=== PATIENT | female | born 1960 | race Caucasian/White ===

== ENCOUNTER 2019-02-06 09:45 | Emergency (ER) | payer OTHER ==
[2019-02-06 10:05] VITALS: BP 136/80; PULSE 81; TEMP 97.9; BMI 31.7
[2019-02-06] MEDS ORDERED: KETOROLAC TROMETHAMINE 30 MG/1 ML VIAL IM ONE (10:37)
[2019-02-06] MEDS ORDERED: LIDOCAINE 5% TOPICAL PATCH TP ONE (10:37)
[2019-02-06] MEDS ORDERED: KETOROLAC TROMETHAMINE 30 MG/1 ML VIAL ONE (10:39)
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
[2019-02-06] MEDS ORDERED: LIDOCAINE 5% TOPICAL PATCH ONE (10:40)
[2019-02-06] MEDS ORDERED: LIDOCAINE PATCH REMOVAL MC SCH (22:00)
== END 2019-02-06 12:10 | disposition home or self-care (01) ==
LOC: JERFT 09:45
PROC: 3E0233Z Introduction of Anti-inflammatory into Muscle, Percutaneous Approach (ICD-10-PCS; principal; 2019-02-06)
DX: S39.012A Strain of muscle, fascia and tendon of lower back, initial encounter (principal); V43.52XA Car driver injured in collision with other type car in traffic accident, initial encounter; Y93.89 Activity, other specified; Y92.410 Unspecified street and highway as the place of occurrence of the external cause; E11.9 Type 2 diabetes mellitus without complications; I10 Essential (primary) hypertension; G89.29 Other chronic pain
CPT/HCPCS: 72100-TC-FY; 73030-TC-RT-FY; 99281-25

== ENCOUNTER 2019-09-23 09:07 | Day surgery (SDC) | payer OTHER ==
[2019-09-22 10:03] VITALS: BMI 28.9
--- NOTE | 2019-09-23 09:37 | EKG ---
Test Reason : Blood Pressure : / mmHG Vent. Rate : 059 BPM Atrial Rate : 059 BPM P-R Int : 140 ms QRS Dur : 086 ms QT Int : 420 ms P-R-T Axes : - degrees QTc Int : 415 ms SINUS BRADYCARDIA OTHERWISE NORMAL ECG WHEN COMPARED WITH ECG OF 06-FEB-2017 14:25, NO SIGNIFICANT CHANGE WAS FOUND Confirmed by MD CHOU PENG ([id number]) on 09/23/2019 9:36:50 AM Referred By: Eliot Ac Confirmed By:TASHI CHOU MD
--- NOTE | 2019-09-23 10:58 | HP ---
Satellite [facility] - Chief Complaint Chief Complaint: left shoulder pain - Past Medical History Allergies/Adverse Reactions: Allergies Allergy/AdvReac Type Severity Reaction Status Date / Time No Known Allergies Allergy Verified 09/23/19 10:51 - Current Medications Current Medications: Home Medications Medication Instructions Recorded Albuterol Sulfate Inhaler - 2 inh IH Q6H PRN 10/26/12 [Ventolin HFA Inhaler -] Amlodipine Besylate [Norvasc -] 5 mg PO DAILY 10/26/12 FENTANYL 75mcg PATCH [DURAGESIC 1 each TD Q72H 02/06/17 75mcg PATCH -] Meclizine HCl [Antivert -] 12.5 mg PO TID 02/06/17 Omeprazole 20 mg PO DAILY 02/06/17 Oxycodone HCl/Acetaminophen 1 each PO TID 02/06/17 [Percocet 10-325 mg Tablet] Aspirin [ASA -] 81 mg PO DAILY tab.chew 02/07/17 Satellite Physical Exam - Physical Examination Vital Signs: Vital Signs Period Temp Pulse Resp BP Sys/Jacob Pulse Ox Last 24 Hr 97.8 F 64 20 127/75 100 General Appearance: Well Nourished, Well Developed, Alert & Oriented x3 ENT: Clear Lung: Normal air movement Extremities: Other (left shoulder- + ttp, decr rom, + neer, + levi, + empty can, nvi) Neurological: Intact, Alert, Oriented Satellite Impression/Plan - Impression/Plan Impression: left shoulder rct Operative Procedure: left shoulder arthroscopy with RCR, SAD Date to be Performed: 09/23/19
[2019-09-23] MEDS ORDERED: ROPIVACAINE HCL 0.5% 30ML VIAL ONE (11:13)
[2019-09-23] MEDS ORDERED: DEXAMETHASONE SOD PHOSPHATE/PF 10 MG/ML SDV ONE (11:13)
[2019-09-23] MEDS ORDERED: MIDAZOLAM HCL 2 MG/2 ML SINGLE DOSE VIAL ONE ×3 (11:15→11:52)
[2019-09-23] MEDS ORDERED: ceFAZolin 2 GRAM PREMIX BAG IVPB ONE (12:00)
[2019-09-23] MEDS ORDERED: ceFAZolin SODIUM 1 GM VIAL ONE (12:38)
[2019-09-23] MEDS ORDERED: DEXAMETHASONE SOD PHOSPHATE 4 MG/1 ML VIAL ONE (12:38)
[2019-09-23] MEDS ORDERED: LIDOCAINE HCL/PF 2% SDV 5ML VIAL ONE (12:38)
--- NOTE | 2019-09-23 12:55 | OP ---
Operative Note - Note: Operative Date: 09/23/19 ([facility]) Pre-Operative Diagnosis: left shoulder rct Operation: left shoulder arthroscopy with RCR, SAD Post-Operative Diagnosis: Same as Pre-op Surgeon: Eliot Ac Respiratory Medicine Physician: Les Robbins Anesthesiologist/PRIVATE PILOT: Brianna Chris Anesthesia: Local, MAC Specimens Removed: shavings Estimated Blood Loss (mls): 5
[2019-09-23] MEDS ORDERED: ONDANSETRON 4 MG/2 ML VIAL IVPUSH PRN (13:23)
[2019-09-23] MEDS ORDERED: oxyCODONE HCL 5 MG TABLET PO PRN (13:23)
[2019-09-23] MEDS ORDERED: LACTATED RINGERS SOLUTION 1,000 ML IV SCH (13:30)
[2019-09-23 14:58] VITALS: TEMP 97.5
[2019-09-23 16:14] VITALS: BP 118/74; PULSE 73
--- NOTE | 2019-09-24 10:48 | OP ---
DATE OF OPERATION: 09/23/2019 PREOPERATIVE DIAGNOSIS: Left rotator cuff tear. POSTOPERATIVE DIAGNOSIS: Left rotator cuff tear plus glenohumeral joint arthritis. PROCEDURE: Left shoulder arthroscopy with subacromial debridement and acromioplasty and bursectomy, left arthroscopic rotator cuff repair, and debridement/chondroplasty of glenohumeral joint. SURGICAL ATTENDING: Eliot Ac MD MANAGER FOOD SAFETY: NALLELY Delgado ANESTHESIA: Regional and general. CLOSURE: Arthrex SpeedBridge for rotator cuff and 3-0 nylon for skin. ESTIMATED BLOOD LOSS: Negligible. COMPLICATIONS: Negative. CONDITION: To recovery room in stable condition. DESCRIPTION OF OPERATIVE PROCEDURE: Patient taken to the operating room on September 23, 2019. Regional anesthesia was administered by the anesthesiologist. IV Kefzol was administered prophylactically prior to the case. Patient was placed in the beach chair position with all prominences well padded. The left shoulder was prepped and draped in the usual sterile fashion. First, a diagnostic arthroscopy of the glenohumeral joint was performed. Posterior portal was made 2 fingerbreadths below the acromion with a 15-blade followed by blunt trocar. Evaluation of the glenohumeral joint revealed the following: Intact glenoid cartilage in the superior 2/3. The inferior 1/3 was significantly worn. Visualizing the humeral head, there were significant mid and posterior grade 3-4 changes. There were no loose bodies in the axillary pouch. Any loose articular cartilage was removed using the shaver. The biceps and biceps anchor were found to be intact. The subscapularis was found to be intact. The supraspinatus was found to be torn and frayed and displaced slightly off the greater tuberosity. The fluid was drained from the glenohumeral joint, the trocars were removed. The posterior trocar was redirected in subacromial space. Accessory lateral and anterior portals were then made with 15-blade and blunt trocar. A bursectomy was performed in the subacromial space using the ArthroCare device. Fibrous tissue encasing the humeral head and filling the subacromial space was debrided using the shaver and the ArthroCare. A large subacromial spur was encountered and was debrided along with completing of an acromioplasty of the undersurface of the acromion, gaining sufficient height for the rotator cuff. Looking inferiorly at the rotator cuff, there was a clear tear of the supraspinatus, crescent morphology, with slight displacement. The bed on the greater tuberosity was debrided and burred with the shaver and bur, respectively. The leading edge of the rotator cuff was cleaned with the shaver, removing primitive healing tissue and exposing the healthy rotator cuff. Two Arthrex anchors preloaded with SutureTape from the SpeedBridge were malleted into the articular margin, one being anterior and one being posterior. Their limbs were delivered one at a time out the lateral portal and were passed in a fanned-out fashion using the ebindle suture passer and then were docked in the anterior portal. One anterior limb and one posterior limb suture was then fed through the eyelet hole of lateral row anchor and was then malleted and screwed into place posteriorly, and then one limb anterior and one posterior was done the same through a more anterolateral row anchor. The sutures were cut flush with the bone. Post-fixation visualization revealed excellent repair of the rotator cuff to the bed of the greater tuberosity. Range of motion revealed excellent clearance in the subacromial space, with good stability of the repair. The fluid was drained from the shoulder, the trocars were removed. The portals were closed using 3-0 nylon. Sterile Aquacel dressings were applied, followed by a shoulder immobilizer. Patient awakened from anesthesia and transferred to recovery in stable condition. No complications. Estimated blood loss negligible. Yury [id number]
--- NOTE | 2019-09-25 18:08 | PATH ---
Surgical Pathology Report Patient Name: ISABELA BROOKS [facility]. Rec. #: [id number] /Age/Gender: 1960 (Age: 59) / F Account: [id number] Location: [facility] Taken: 09/23/2019 Received: 09/23/2019 Reported: 09/25/2019 Physicians: Eliot Ac M.D. Specimen(s) Received LEFT SHOULDER SHAVINGS Clinical History left shoulder tear Final Diagnosis LEFT SHOULDER SHAVINGS: SYNOVIAL TISSUE WITH FOCAL FIBROSIS AND REACTIVE CHANGE. SEPARATE FRAGMENTS OF BONE, CARTILAGE, AND SKELETAL MUSCLE WITH NO SIGNIFICANT PATHOLOGIC CHANGE. Electronically Signed Alvaro Lozoya M.D. Gross Description Received in formalin labeled "left shoulder shavings," is a 3.0 x 2.5 x 0.2 cm aggregate of muse-yellow soft tissue fragments. Warping Machine Operator portions are submitted in one cassette. [place]/09/23/2019 [place]/09/23/2019
== END 2019-09-23 16:05 | disposition home or self-care (01) ==
LOC: JASU-SURG 09:07
PROVIDERS: ATTEND Orthopaedic Surgery
PROC: 0LQ24ZZ Repair Left Shoulder Tendon, Percutaneous Endoscopic Approach (ICD-10-PCS; principal; 2019-09-23 11:00)
PROC: 0RNK4ZZ Release Left Shoulder Joint, Percutaneous Endoscopic Approach (ICD-10-PCS; 2019-09-23 11:00)
DX: M75.102 Unspecified rotator cuff tear or rupture of left shoulder, not specified as traumatic (principal); M19.012 Primary osteoarthritis, left shoulder
CPT/HCPCS: 88304-TC; 93005; 93010; 94760

== ENCOUNTER 2024-01-14 06:30 | Day surgery (SDC) | payer OTHER, BC ==
[2024-01-13 10:38] VITALS: BMI 26.4
[2024-01-14] MEDS ORDERED: ISOSULFAN BLUE 50 MG/5 ML VIAL SQ ONE (07:32)
[2024-01-14] MEDS ORDERED: LIDOCAINE HCL 1%, 10 MG/ML (20ML VIAL) ONE (07:32)
[2024-01-14] MEDS ORDERED: MIDAZOLAM HCL 2 MG/2 ML SINGLE DOSE VIAL ONE (08:45)
[2024-01-14] MEDS ORDERED: PROPOFOL 20 ML ONE ×2 (08:45→11:10)
[2024-01-14] MEDS ORDERED: DEXAMETHASONE SOD PHOSPHATE 4 MG/1 ML VIAL ONE (08:46)
[2024-01-14] MEDS ORDERED: ONDANSETRON 4 MG/2 ML VIAL ONE (08:47)
[2024-01-14] MEDS ORDERED: KETOROLAC TROMETHAMINE 30 MG/1 ML VIAL ONE (08:47)
[2024-01-14] MEDS: LIDOCAINE HCL 1%, 10 MG/ML (20ML VIAL) NR ONE (11:22)
[2024-01-14] MEDS ORDERED: LACTATED RINGERS SOLUTION 1,000 ML IV SCH (12:30)
[2024-01-14] MEDS ORDERED: ACETAMINOPHEN INJECTION 100 ML ONE (12:52)
[2024-01-14] MEDS: ACETAMINOPHEN 1000 MG/100 ML BAG IVPB ONE (12:57)
[2024-01-14] MEDS ORDERED: ACETAMINOPHEN 1000 MG/100 ML BAG IVPB ONE (13:22)
[2024-01-14 13:30] VITALS: RESP 20
[2024-01-14 15:34] VITALS: BP 114/70; PULSE 70; TEMP 97
== END 2024-01-14 15:15 | disposition home or self-care (01) ==
LOC: JASU-SURG 06:30
PROVIDERS: ATTEND Surgery
PROC: 0HBY0ZZ Excision of Supernumerary Breast, Open Approach (ICD-10-PCS; principal; 2024-01-14 09:00)
DX: C50.912 Malignant neoplasm of unspecified site of left female breast (principal)
CPT/HCPCS: 19281; 76098-TC-FY; 78195-TC; 88305-TC; 88307-TC; 88341-TC; 88342-TC; 94760; A9541; J0131

== ENCOUNTER 2024-02-18 04:27 | Day surgery (SDC) | payer OTHER, BC ==
[2024-02-18 07:08] VITALS: BMI 25.4
[2024-02-18] MEDS ORDERED: METHYLENE BLUE 50 MG/10 ML AMPUL ONE (07:23)
[2024-02-18] MEDS ORDERED: LIDOCAINE HCL 1%, 10 MG/ML (20ML VIAL) ONE (07:23)
[2024-02-18] MEDS ORDERED: LIDOCAINE HCL/PF 2% SDV 5ML VIAL ONE (08:58)
[2024-02-18] MEDS ORDERED: PROPOFOL 20 ML ONE (08:59)
[2024-02-18] MEDS ORDERED: MIDAZOLAM HCL 2 MG/2 ML SINGLE DOSE VIAL ONE (09:00)
[2024-02-18] MEDS: ceFAZolin SODIUM 1 GM VIAL IVPB ONE (10:03)
[2024-02-18] MEDS ORDERED: DEXAMETHASONE SOD PHOSPHATE 4 MG/1 ML VIAL ONE (10:04)
[2024-02-18] MEDS ORDERED: ceFAZolin SODIUM 1 GM VIAL ONE (10:04)
[2024-02-18] MEDS ORDERED: GENTAMICIN SO4 80 MG/2 ML VIAL ONE (10:17)
[2024-02-18] MEDS ORDERED: KETOROLAC TROMETHAMINE 30 MG/1 ML VIAL ONE (10:45)
[2024-02-18] MEDS ORDERED: ONDANSETRON 4 MG/2 ML VIAL ONE (10:45)
[2024-02-18] MEDS ORDERED: ONDANSETRON 4 MG/2 ML VIAL IVPUSH PRN (11:31)
[2024-02-18] MEDS ORDERED: oxyCODONE HCL 5 MG TABLET PO PRN (11:31)
[2024-02-18] MEDS ORDERED: PROMETHAZINE HCL 25 MG/1 ML VIAL IVPB PRN (11:31)
[2024-02-18] MEDS ORDERED: BUPIVACAINE 0.75% IN DEXTROSE/PF 2ML AMPULE NR ONE (11:33)
[2024-02-18] MEDS ORDERED: ACETAMINOPHEN INJECTION 100 ML ONE (11:41)
[2024-02-18] MEDS: ACETAMINOPHEN 1000 MG/100 ML BAG IVPB ONE (11:42)
[2024-02-18] MEDS: LACTATED RINGERS SOLUTION 1,000 ML IV SCH (11:44)
[2024-02-18 13:42] VITALS: RESP 16
[2024-02-18] MEDS ORDERED: oxyCODONE HCL 5 MG TABLET ONE (14:02)
[2024-02-18] MEDS: oxyCODONE HCL 5 MG TABLET PO PRN (14:05)
[2024-02-18 15:17] VITALS: BP 105/62; PULSE 95; TEMP 97.7
== END 2024-02-18 15:41 | disposition home or self-care (01) ==
LOC: JASU-SURG 04:27
PROVIDERS: ATTEND Surgery
PROC: 0HTV0ZZ Resection of Bilateral Breast, Open Approach (ICD-10-PCS; principal; 2024-02-18 09:00)
DX: C50.912 Malignant neoplasm of unspecified site of left female breast (principal)
CPT/HCPCS: 88305-TC; 88307-TC; 88342-TC; 94760; J0131; Q9968

== ENCOUNTER 2024-09-22 06:22 | Day surgery (SDC) | payer OTHER, BC ==
[2024-09-21 09:51] VITALS: BMI 25.3
[2024-09-22] MEDS: BUPIVACAINE HCL/PF 0.25% (2.5MG/ML) 10 ML VIAL IJ ONE
[2024-09-22] MEDS ORDERED: MIDAZOLAM HCL 2 MG/2 ML SINGLE DOSE VIAL ONE (09:07)
[2024-09-22] MEDS ORDERED: PROPOFOL 40 ML ONE ×2 (09:08→09:09)
[2024-09-22] MEDS ORDERED: ROCURONIUM BROMIDE 50 MG/5 ML SYRINGE ONE (09:09)
[2024-09-22] MEDS: ceFAZolin 2 GRAM PREMIX BAG IVPB ONE ×2 (10:00)
[2024-09-22] MEDS ORDERED: BUPIVACAINE HCL/PF 0.25% (2.5MG/ML) 10 ML VIAL ONE (10:10)
[2024-09-22] MEDS ORDERED: ACETAMINOPHEN INJECTION 100 ML ONE (11:45)
[2024-09-22] MEDS ORDERED: SUGAMMADEX SODIUM 200 MG/2 ML VIAL ONE ×2 (12:06→12:11)
[2024-09-22] MEDS ORDERED: ONDANSETRON 4 MG/2 ML VIAL ONE (12:10)
[2024-09-22] MEDS: LACTATED RINGERS SOLUTION 1,000 ML IV SCH (12:30)
[2024-09-22] MEDS ORDERED: ONDANSETRON 4 MG/2 ML VIAL IVPUSH PRN (13:30)
[2024-09-22 14:22] VITALS: RESP 18
[2024-09-22 16:44] VITALS: BP 130/83; PULSE 90; TEMP 97.8
== END 2024-09-22 16:30 | disposition home or self-care (01) ==
LOC: JASU-SURG 06:22
PROVIDERS: ATTEND Plastic Surgery
PROC: 0HHV0NZ Insertion of Tissue Expander into Bilateral Breast, Open Approach (ICD-10-PCS; principal; 2024-09-22 09:00)
DX: Z42.1 Encounter for breast reconstruction following mastectomy (principal); Z90.13 Acquired absence of bilateral breasts and nipples; Z85.3 Personal history of malignant neoplasm of breast
CPT/HCPCS: 94760; Q4116